=== PATIENT | female | born 1955 | race Caucasian/White ===

== ENCOUNTER → 2023-08-18 08:26 | Outpatient (REF) | payer MEDICARE, SELFPAY ==
[2023-08-18 10:24] LABS: Hematocrit 43.6 % (37.0-47.0); Hemoglobin 14.2 g/dL (12.0-16.0); Mean Corp Hgb Conc. 32.6 g/dL (33.0-37.0); Mean Corpuscular Hgb 28.4 pg (27.0-31.0); Mean Corpuscular Volume 87.2 fL (81.0-99.0); Mean Platelet Volume 8.7 fL (7.4-10.4); Platelet Count 204 10^3/uL (130-400); Red Cell Dist. Width 12.9 % (11.5-14.5); White Blood Cell Count 5.2 10^3/uL (4.8-10.8)
[2023-08-18 10:47] LABS: ALT (SGPT) 12 U/L (0-35); AST (SGOT) 21 U/L (14-36); Albumin 3.8 g/dl (3.5-5.0); Alkaline Phosphatase 68 U/L (38-126); Blood Urea Nitrogen 16 mg/dl (7-17); Calcium 9.9 mg/dl (8.4-10.2); Carbon Dioxide 27 mmol/L (22-30); Chloride 104 mmol/L (98-107); Glucose 84 mg/dl (70-99); Potassium 4.5 mmol/L (3.5-5.1); Sodium 139 mmol/L (135-145); Total Protein 6.6 g/dl (6.3-8.2); eGFR > 60.00
[2023-08-18 11:02] LABS: Vitamin D, 25-OH*** 48.6 ng/mL (30-80)
== END ==
LOC: SDSPAT 08:26
PROVIDERS: ATTENDING PHYSICIAN Surgery; FAMILY PHYSICIAN Family Medicine
DX: Z01.818 Encounter for other preprocedural examination (principal)
CPT/HCPCS: 36415; 80053; 82306; 84134; 85027

== ENCOUNTER → 2023-08-25 08:41 | Outpatient (REF) | payer MEDICARE, SELFPAY | LOC: WDC 08:41 | PROVIDERS: ATTENDING PHYSICIAN Surgery | DX: C50.412 Malignant neoplasm of upper-outer quadrant of left female breast (principal); N63.22 Unspecified lump in the left breast, upper inner quadrant | CPT/HCPCS: 19285; 38792; 76942; 77065; A4648; A9541 ==

== ENCOUNTER 2023-08-26 06:20 | Day surgery (SDC) | payer MEDICARE, SELFPAY ==
[2023-08-18 16:29] VITALS: BMI 35.4
[2023-08-26 08:00] VITALS: BMI 35.4
[2023-08-26 08:05] VITALS: BP 147/78
[2023-08-26] MEDS: TYLENOL 1000 MG PO (08:17)
[2023-08-26] MEDS: NORMOSOL-R 1000 IV (08:19)
[2023-08-26] MEDS: LOVENOX 40 MG SC (09:25)
--- NOTE | 2023-08-26 11:04 | W.IMMPOSTOP ---
Surgical Immed Post Op Note
-
Primary Surgeon: Maru
Assisting Surgeon: None
Pre-op Diagnosis: Left breast ca
Post-op Diagnosis: Same
Procedure Performed: left localized lumpectomy and sentinel lymph node mapping and biopsy
Anesthesia Type: TIVA
Specimen / Cultures: Left lumpectomy, margins, sentinel nodes
Estimated Blood Loss: 10cc
Complications:None
Operative Findings: reflector in specimen, sentinel nodes negative on frozen
[place] Node Bx Breast Cancer
[place] Node Bx Breast Cancer
Operation performed with curative intent: Yes
Tracer(s) to ID [place] Nodes in Non-Neoadjuvant setting: Radioactive Tracer
Tracer(s) to ID [place] Nodes in the Neoadjuvant Setting: N/A
All nodes at end of dye-filled Lymphatic Channel removed: N/A
All Significantly Radioactive Nodes were removed: Yes
All Palpably Suspicious Nodes were Removed: Yes
Bx Proven Pos Nodes Marked Prior to Chemo ID'd & Removed: N/A
[2023-08-26 11:21] VITALS: BP 127/62
[2023-08-26 11:30] VITALS: BP 130/67
[2023-08-26 11:45] VITALS: BP 138/71
[2023-08-26 12:00] VITALS: BP 134/65
[2023-08-26 12:13] VITALS: BP 129/69
== END 2023-08-26 12:24 | disposition home or self-care (01) ==
LOC: SDS 06:20
PROVIDERS: ATTENDING PHYSICIAN Surgery; FAMILY PHYSICIAN Family Medicine
DX: C50.412 Malignant neoplasm of upper-outer quadrant of left female breast (principal); Z17.0 Estrogen receptor positive status [ER+]
CPT/HCPCS: 38525; 19301; 88305; 88307; 88332; 76098; 88331; 88341; 88342; 88360; A4648; C1729

== ENCOUNTER → 2024-01-13 09:24 | Outpatient (REF) | payer MEDICARE, SELFPAY | LOC: RCS 09:24 | PROVIDERS: ATTENDING PHYSICIAN Internal Medicine Cardiovascular Disease; FAMILY PHYSICIAN Family Medicine | DX: R00.0 Tachycardia, unspecified (principal) | CPT/HCPCS: 93225; 93226 ==

== ENCOUNTER → 2024-03-08 09:03 | Outpatient (REF) | payer MEDICARE, SELFPAY | LOC: HWRCS 09:03 | PROVIDERS: ATTENDING PHYSICIAN Family Medicine | DX: I77.810 Thoracic aortic ectasia (principal) | CPT/HCPCS: 93306 ==

== ENCOUNTER → 2024-04-02 14:40 | Outpatient (REF) | payer MEDICARE, SELFPAY | LOC: HWRAD 14:40 | PROVIDERS: ATTENDING PHYSICIAN Internal Medicine Cardiovascular Disease; FAMILY PHYSICIAN Family Medicine | DX: I20.1 Angina pectoris with documented spasm (principal) | CPT/HCPCS: 71250 ==

== ENCOUNTER → 2024-06-17 15:18 | Outpatient (REF) | payer MEDICARE, SELFPAY | LOC: WDC 15:18 | PROVIDERS: ATTENDING PHYSICIAN Family Medicine Geriatric Medicine; FAMILY PHYSICIAN Family Medicine | DX: Z12.31 Encounter for screening mammogram for malignant neoplasm of breast (principal) | CPT/HCPCS: 77063; 77067 ==

== ENCOUNTER → 2024-09-22 09:01 | Outpatient (REF) | payer MEDICARE, SELFPAY | LOC: WDC 09:01 | PROVIDERS: ATTENDING PHYSICIAN Family Medicine Geriatric Medicine; FAMILY PHYSICIAN Family Medicine | DX: R92.333 Mammographic heterogeneous density, bilateral breasts (principal) | CPT/HCPCS: 76641 ==

== ENCOUNTER → 2025-06-06 15:09 | Outpatient (REF) | payer MEDICARE, SELFPAY | LOC: WDC 15:09 | PROVIDERS: ATTENDING PHYSICIAN Obstetrics & Gynecology; FAMILY PHYSICIAN Family Medicine | DX: Z12.31 Encounter for screening mammogram for malignant neoplasm of breast (principal) | CPT/HCPCS: 77063; 77067 ==